=== PATIENT | male | born 1995 | race Caucasian/White ===

== ENCOUNTER 2022-08-16 16:18 | Inpatient (IN) | payer MEDICAID ==
[~2022-08-16] VITALS: Ht 172.7 cm; Wt 61.5 kg
[2022-08-16] MEDS ORDERED: normal saline 1000ML IV soln IVB ONE (16:30)
[2022-08-16] MEDS ORDERED: milrinone (Primacor) 20mg/D5W 100 ML IV PRN (16:50)
[2022-08-16 17:09] LABS: ABG BASE EXCESS -6.7 mmol/L (-2.0-2.0); ABG HCO3 22.5 mmol/L (22.0-26.0); ABG OXYGEN SATURATION 90.2 % (94-97); ABG PCO2 (T) 64.4 mmHg (35.0-48.0); ABG PO2 (T) 78.9 mmHg (75.0-100.0); ALLEN'S TEST POSITIVE; FCOHb 0.9 % (0.0-3.9); FMetHb 0.4 % (0.0-1.5); PATIENT TEMPERATURE 36.8; PEEP 5 cm H2O; RESPIRATORY RATE 16 b/min; TIDAL VOLUME 300 mL; TOTAL HEMOGLOBIN 10.9 G/dl (14.0-17.9)
[2022-08-16 17:14] LABS: APTT 27 SECONDS (22-32)
[2022-08-16] MEDS: milrinone (Primacor) 20mg/D5W 100 ML IV PRN (17:16)
[2022-08-16 17:19] LABS: BASOPHILS # (AUTO) 0.1 X10'3 (0-0.2); MEAN CORPUSCULAR HEMOGLOBIN 24.3 PG (27.0-31.0); MEAN PLATELET VOLUME 7.4 FL (7.4-10.4)
[2022-08-16 17:20] VITALS: BP 122/63
[2022-08-16 17:29] LABS: ALANINE AMINOTRANSFERASE 45 U/L (12-78); ALBUMIN 2.5 G/DL (3.4-5.0); ALBUMIN/GLOBULIN RATIO 0.4 (1.1-1.5); ALKALINE PHOSPHATASE 83 IU/L (46-116); ANION GAP 12 (8-16); ASPARTATE AMINO TRANSFERASE 46 U/L (10-37); BILIRUBIN,TOTAL 0.5 MG/DL (0.1-1.0); BLOOD UREA NITROGEN 17 MG/DL (7-18); BUN/CREATININE RATIO 53.1 (5.4-32.0); CALCIUM 9.2 MG/DL (8.5-10.1); CHLORIDE 102 MMOL/L (99-107); CREATININE 0.32 MG/DL (0.60-1.10); GLUCOSE 228 MG/DL (70-104); LIPASE < 50 U/L (73-393); POTASSIUM 4.9 MMOL/L (3.5-5.1); SODIUM 136 MMOL/L (135-145); TOTAL CARBON DIOXIDE 21.6 MMOL/L (24-32); TOTAL PROTEIN 8.5 G/DL (6.4-8.2); eGFR > 90 ML/MIN
[2022-08-16] MEDS ORDERED: diatrozoate meglu/diatrozoate sod (37% iodine) 120ML oral solution PO ONE (18:05)
[2022-08-16] MEDS ORDERED: diatr meglu/diatrizoate 30ml oral sol.-(3 dose) bottle PO ONE (18:05)
[2022-08-16] MEDS ORDERED: diatr meglu/diatrizoate 30ml oral sol.-(3 dose) bottle ONE (18:08)
[2022-08-16] MEDS ORDERED: sodium phosphate inj. 15 MMOL in dextrose 5%-water 250 ML IV PRN (18:15)
[2022-08-16] MEDS ORDERED: furosemide 10 MG/1 ML 10ml inj IV ONE (18:15)
[2022-08-16] MEDS ORDERED: furosemide inj 1,000 MG in normal saline 250ml IV soln 150 ML IV SCH (18:15)
[2022-08-16] MEDS ORDERED: sodium phosphate inj. 30 MMOL in dextrose 5%-water 250 ML IV PRN (18:15)
[2022-08-16] MEDS ORDERED: magnesium 2GM in 50ml NS 50 ML IV PRN (18:15)
[2022-08-16] MEDS ORDERED: potassium Cl 20 mEq SR tablet PO PRN ×2 (18:15)
[2022-08-16] MEDS ORDERED: Neutra Phos packet PO PRN (18:15)
[2022-08-16] MEDS ORDERED: midazolam 1 mg/ML 2ml injection IV ONE (18:15)
[2022-08-16] MEDS ORDERED: magnesium 4gm in 100ml NS 100 ML IV PRN (18:15)
[2022-08-16] MEDS ORDERED: magnesium Cl slow-release 64mg tablet PO PRN (18:15)
[2022-08-16 18:28] LABS: BASOPHILS % (AUTO) 0.4 % (0-1); EOSINOPHILS % (AUTO) 0.1 % (0-6); HEMATOCRIT 30.7 % (42.0-52.0); HEMOGLOBIN 9.2 g/dl (14.0-17.9); LYMPHOCYTES # (AUTO) 0.5 X10'3 (1.1-4.8); MEAN CORPUSCULAR VOLUME 80.8 FL (78-98); MONOCYTES # (AUTO) 1.1 X10'3 (0-0.9); MONOCYTES % (AUTO) 6.4 % (2-12); NEUTROPHILS % (AUTO) 90.1 % (42-75); PLATELET COUNT 660 X10'3 (140-440); RED CELL DISTRIBUTION WIDTH 19.4 % (11.5-14.5); WHITE BLOOD COUNT 17.8 X10'3 (4.5-11.0)
[2022-08-16 18:30] LABS: PLATELET ESTIMATE INCREASED
[2022-08-16 18:31] LABS: ANISOCYTOSIS 2+; HYPOCHROMASIA 1+; POIKILOCYTOSIS 1+; SPHEROCYTES 1+; TARGET CELLS 1+
[2022-08-16 18:32] LABS: STOMATOCYTES 1+
[2022-08-16] MEDS: K, MAG and/or Phos replacement - Verify level? MC SCH (18:50)
[2022-08-16] MEDS ORDERED: furosemide inj 100 MG in normal saline 100ml IV soln 90 ML IV SCH (19:00)
[2022-08-16 19:04] VITALS: BP 125/83
[2022-08-16 19:20] LABS: ALBUMIN 2.7 G/DL (3.4-5.0); ANION GAP 10 (8-16); BLOOD UREA NITROGEN 18 MG/DL (7-18); BUN/CREATININE RATIO 64.3 (5.4-32.0); CALCIUM 9.2 MG/DL (8.5-10.1); CHLORIDE 103 MMOL/L (99-107); CREATININE 0.28 MG/DL (0.60-1.10); GLUCOSE 181 MG/DL (70-104); MAGNESIUM 2.2 MG/DL (1.5-2.4); PHOSPHORUS 6.3 MG/DL (2.3-4.5); POTASSIUM 4.4 MMOL/L (3.5-5.1); SODIUM 137 MMOL/L (135-145); TOTAL CARBON DIOXIDE 23.7 MMOL/L (24-32); eGFR > 90 ML/MIN
[2022-08-16 20:44] VITALS: BP 115/79
[2022-08-16] MEDS ORDERED: morphine 4 MG/ML inj SYRINge IV PRN (20:55)
[2022-08-16] MEDS ORDERED: POTASSIUM BICARB 20meq eff tab 20 MEQ TABLET.EFF PO PRN ×2 (20:55)
[2022-08-16] MEDS ORDERED: acetaminophen 325mg tablet PO PRN ×2 (20:55)
[2022-08-16] MEDS ORDERED: magnesium hydroxide 30ml (MOM) UD suspension PO PRN (20:55)
[2022-08-16] MEDS ORDERED: LIDOcaine 2% 10ml TOPICAL JELLY (Urojet) TP ONE (20:55)
[2022-08-16] MEDS ORDERED: furosemide 10 MG/1 ML 10ml inj IV SCH (20:59)
[2022-08-16] MEDS: midazolam 1 mg/ML 2ml injection IV PRN ×2 (21:19→23:36)
[2022-08-16] MEDS ORDERED: FLUTICASONE (22:28)
[2022-08-16] MEDS ORDERED: ESCI5TAB17 PEG (22:28)
[2022-08-16] MEDS ORDERED: BUSP10TA11 PEG (22:28)
[2022-08-16] MEDS ORDERED: ENOX40SY7 SUBCUT (22:28)
[2022-08-16] MEDS ORDERED: AMIO200T61 PEG (22:28)
[2022-08-16] MEDS ORDERED: GABA-530 PEG (22:28)
[2022-08-16] MEDS ORDERED: QUELT PEG (22:28)
[2022-08-16] MEDS ORDERED: DIGO62.53 PEG (22:28)
[2022-08-16] MEDS ORDERED: FURO-149 PEG (22:28)
[2022-08-16] MEDS ORDERED: lidocaine 5% patch TOP (22:39)
[2022-08-16] MEDS ORDERED: MELA3TAB70 PEG (22:39)
[2022-08-16] MEDS ORDERED: [UNRECOGNIZED DRUG - MIXTURE] PEG (22:39)
[2022-08-16] MEDS ORDERED: INSU100I57 SQ (22:39)
[2022-08-16] MEDS ORDERED: IVAB5TAB PEG (22:39)
[2022-08-16] MEDS ORDERED: MICO85PO13 TOP (22:39)
[2022-08-16 22:51] VITALS: BP 115/70
--- NOTE | 2022-08-16 23:33 | NUR ---
Patient arrived on hospital bed w/RT and ER staff.
[2022-08-16 23:50] VITALS: BP 108/71
[2022-08-17] VITALS (33 sets, daily range): BP systolic 81–114; BP diastolic 38–77
[2022-08-17] MEDS: furosemide 40mg/4ml inj IV SCH ×3 (00:05→07:15)
[2022-08-17] MEDS: milrinone (Primacor) 20mg/D5W 100 ML IV PRN ×2 (00:07→18:29)
[2022-08-17] MEDS ORDERED: MICO57CR2 TOP (01:39)
[2022-08-17] MEDS ORDERED: LIDO700A32 TOP (01:39)
[2022-08-17] MEDS ORDERED: MULT9LIQ9 PEG (01:39)
[2022-08-17] MEDS ORDERED: FLUT16SP2 BOTHNARES (01:39)
[2022-08-17] MEDS ORDERED: DIGO-20 PO (01:39)
[2022-08-17] MEDS: midazolam 1 mg/ML 2ml injection IV PRN ×5 (01:50→13:13)
--- NOTE | 2022-08-17 02:24 | NUR ---
PICC not drawing, Lab notified
[2022-08-17] MEDS ORDERED: POLY17PO10 PEG (02:43)
[2022-08-17] MEDS ORDERED: ALBU18HF2 INH (03:35)
[2022-08-17] MEDS ORDERED: CARB15DR EACHEYE (03:35)
[2022-08-17] MEDS ORDERED: VALP250C3 PEG (03:35)
[2022-08-17] MEDS ORDERED: DICL20GE TOP (03:35)
[2022-08-17] MEDS ORDERED: DOCU1ENE3 RC (03:35)
[2022-08-17] MEDS ORDERED: SCOP1PAT11 TOP (03:35)
[2022-08-17] MEDS ORDERED: TRAZ-251 PEG (03:35)
[2022-08-17] MEDS ORDERED: PROM6.256 PEG (03:35)
[2022-08-17] MEDS ORDERED: CYCL5TAB PEG (03:35)
[2022-08-17] MEDS ORDERED: HYDR-3965 PEG (03:35)
[2022-08-17] MEDS ORDERED: ACET-890 PEG (03:35)
[2022-08-17] MEDS ORDERED: HYDR-3686 PEG (03:35)
[2022-08-17] MEDS ORDERED: SENN8.6T19 PEG (03:35)
[2022-08-17 03:40] LABS: ALANINE AMINOTRANSFERASE 193 U/L (12-78); ALBUMIN 2.3 G/DL (3.4-5.0); ALBUMIN/GLOBULIN RATIO 0.5 (1.1-1.5); ALKALINE PHOSPHATASE 71 IU/L (46-116); ANION GAP 12 (8-16); ASPARTATE AMINO TRANSFERASE 194 U/L (10-37); BILIRUBIN,TOTAL 0.4 MG/DL (0.1-1.0); BLOOD UREA NITROGEN 14 MG/DL (7-18); BUN/CREATININE RATIO 93.3 (5.4-32.0); CALCIUM 8.7 MG/DL (8.5-10.1); CHLORIDE 104 MMOL/L (99-107); CREATININE 0.15 MG/DL (0.60-1.10); GLUCOSE 61 MG/DL (70-104); MAGNESIUM 1.7 MG/DL (1.5-2.4); PHOSPHORUS 4.7 MG/DL (2.3-4.5); SODIUM 142 MMOL/L (135-145); TOTAL CARBON DIOXIDE 25.7 MMOL/L (24-32); TOTAL PROTEIN 7.4 G/DL (6.4-8.2); eGFR > 90 ML/MIN
[2022-08-17 03:43] LABS: POTASSIUM 2.4 MMOL/L (3.5-5.1)
[2022-08-17] MEDS: potassium Cl 20mEq/100mL bag 100 ML IV PRN ×5 (04:01→23:17)
--- NOTE | 2022-08-17 04:06 | NUR ---
Patient's Potassium is 2.4, I will replace per protocol and hold the 0400 Lasix.
[2022-08-17] MEDS: morphine 2 MG/ML inj. syringe IV PRN ×5 (04:32→23:20)
--- NOTE | 2022-08-17 06:32 | NUR ---
Problems reprioritized. Patient report given, questions answered & plan of care reviewed with FRANKIE Barry.
[2022-08-17] MEDS ORDERED: dextrose 50%-water 50ml dispensing syringe IV PRN ×2 (06:40)
[2022-08-17] MEDS ORDERED: glucagon, human recombinant 1mg kit SUBCUT PRN (06:40)
[2022-08-17] MEDS ORDERED: DEXTROSE 15 GM of carb/4 tabs (each vial/BOTTLE has 4 tablets) PO PRN ×2 (06:40)
[2022-08-17] MEDS ORDERED: insulin Lispro (HumaLOG) vial - multi-dose SQ SCH (06:40)
[2022-08-17] MEDS ORDERED: MESSAGE TO PHARMACY PO ONE (06:40)
[2022-08-17 06:59] LABS: ALBUMIN 2.3 G/DL (3.4-5.0); ANION GAP 12 (8-16); BLOOD UREA NITROGEN 15 MG/DL (7-18); BUN/CREATININE RATIO 93.8 (5.4-32.0); CALCIUM 8.8 MG/DL (8.5-10.1); CHLORIDE 104 MMOL/L (99-107); CREATININE 0.16 MG/DL (0.60-1.10); GLUCOSE 77 MG/DL (70-104); MAGNESIUM 1.8 MG/DL (1.5-2.4); PHOSPHORUS 5.1 MG/DL (2.3-4.5); POTASSIUM 3.5 MMOL/L (3.5-5.1); SODIUM 141 MMOL/L (135-145); TOTAL CARBON DIOXIDE 24.6 MMOL/L (24-32); eGFR > 90 ML/MIN
[2022-08-17 07:04] LABS: HEMOGLOBIN A1C 4.4 % (4.5-6.2)
--- NOTE | 2022-08-17 07:10 | NUR ---
Patient in room CICU 2010. I have received report from Julianna DAVID and had the opportunity to ask questions and assume patient care.
[2022-08-17] MEDS ORDERED: K and/or MAG REPLACEMENT MC SCH (08:00)
[2022-08-17] MEDS: K, MAG and/or Phos replacement - Verify level? MC SCH (08:00)
[2022-08-17 09:19] LABS: BASOPHILS % (AUTO) 0.2 % (0-1); EOSINOPHILS % (AUTO) 0.3 % (0-6); HEMATOCRIT 28.7 % (42.0-52.0); HEMOGLOBIN 8.6 g/dl (14.0-17.9); LYMPHOCYTES # (AUTO) 0.8 X10'3 (1.1-4.8); LYMPHOCYTES % (AUTO) 8.3 % (21-51); MEAN CORPUSCULAR HEMOGLOBIN 24.6 PG (27.0-31.0); MEAN CORPUSCULAR HGB CONC 30.1 g/dL (33.0-36.5); MEAN CORPUSCULAR VOLUME 81.8 FL (78-98); MEAN PLATELET VOLUME 7.3 FL (7.4-10.4); MONOCYTES # (AUTO) 1.2 X10'3 (0-0.9); MONOCYTES % (AUTO) 12.9 % (2-12); NEUTROPHILS # (AUTO) 7.5 X10'3 (1.8-7.7); NEUTROPHILS % (AUTO) 78.3 % (42-75); PLATELET COUNT 405 X10'3 (140-440); RED BLOOD COUNT 3.51 X10'6 (4.70-6.10); RED CELL DISTRIBUTION WIDTH 18.7 % (11.5-14.5); WHITE BLOOD COUNT 9.5 X10'3 (4.5-11.0)
[2022-08-17] MEDS ORDERED: acetaminophen 325mg/10.15ml oral unit dose solution PEG PRN ×2 (11:23→11:24)
[2022-08-17] MEDS ORDERED: Neutra Phos packet PEG PRN (11:24)
[2022-08-17] MEDS ORDERED: DEXTROSE 15 GM of carb/4 tabs (each vial/BOTTLE has 4 tablets) PEG PRN (11:24)
[2022-08-17] MEDS ORDERED: magnesium hydroxide 30ml (MOM) UD suspension PEG PRN (11:24)
[2022-08-17] MEDS ORDERED: furosemide 10 MG/1 ML 10ml inj IV ONE (11:25)
[2022-08-17] MEDS ORDERED: POTASSIUM BICARB 20meq eff tab 20 MEQ TABLET.EFF PEG PRN (11:25)
[2022-08-17] MEDS: furosemide inj 100 MG in normal saline 100ml IV soln 90 ML IV SCH ×2 (13:01→21:38)
[2022-08-17] MEDS: morphine 4 MG/ML inj SYRINge IV PRN (13:39)
[2022-08-17 13:59] LABS: ALBUMIN 2.5 G/DL (3.4-5.0); ANION GAP 10 (8-16); BLOOD UREA NITROGEN 14 MG/DL (7-18); BUN/CREATININE RATIO 87.5 (5.4-32.0); CALCIUM 9.3 MG/DL (8.5-10.1); CHLORIDE 104 MMOL/L (99-107); CREATININE 0.16 MG/DL (0.60-1.10); GLUCOSE 84 MG/DL (70-104); MAGNESIUM 1.8 MG/DL (1.5-2.4); PHOSPHORUS 4.4 MG/DL (2.3-4.5); POTASSIUM 4.7 MMOL/L (3.5-5.1); SODIUM 140 MMOL/L (135-145); TOTAL CARBON DIOXIDE 25.9 MMOL/L (24-32); eGFR > 90 ML/MIN
[2022-08-17] MEDS: POTASSIUM BICARB 20meq eff tab 20 MEQ TABLET.EFF PEG SCH ×2 (14:00→19:52)
[2022-08-17] MEDS: NORMAL SALINE IV SCH (14:00)
[2022-08-17] MEDS: DEXMEDETOMIDINE IV SCH (14:00)
--- NOTE | 2022-08-17 14:50 | NUR ---
TF consult: Pt trach and PEG dependent secondary to muscular dystrophy, admit for anasarca with bilat pleural effusions. Per EMR patient's TF was stopped three days [employer] at [facility]. Okay to start TF today though MD requests to run at a trickle rate of 30 mL/hr and will reassess tomorrow for possible advancement, see TF recs below. Noted pt with h/o T2DM with BG range 61-228 mg/dL since admit though A1c 4.4%, RN notified. LBM 08/16. Will continue to follow closely. Recommendations: 1) Continuous trickle TF at 30 mL/hr per MD using Vital HP to provide 720 mL volume/day, 864 kcal, 54 g protein, and 584 mL water 2) Once okay to advance TF, continuous Vital HP via PEG with 70 mL/hr goal rate to provide 1680 mL volume/day, 2016 kcal, 126 g protein, and 1362 mL water 3) Additional water flush per physician given CHF and diuresis; monitor serum Na 4) Prealbumin q Tuesday/ 5) Daily scaled weights Addendum: 08/17/22 at [address] Amended: Links added.
--- NOTE | 2022-08-17 14:54 | NUR ---
TF consult: Pt trach and PEG dependent secondary to muscular dystrophy, admit for anasarca with bilat pleural effusions. Per EMR patient's TF was stopped three days [employer] at [facility]. Okay to start TF today though MD requests to run at a trickle rate of 30 mL/hr and will reassess tomorrow for possible advancement, see TF recs below. Noted pt with h/o T2DM with BG range 61-228 mg/dL since admit though A1c 4.4%, RN notified. LBM 08/16. Will continue to follow closely. Recommendations: 1) Continuous trickle TF at 30 mL/hr per MD using Vital AF to provide 720 mL volume/day, 864 kcal, 54 g protein, and 584 mL water 2) Once okay to advance TF, continuous Vital AF via PEG with 70 mL/hr goal rate to provide 1680 mL volume/day, 2016 kcal, 126 g protein, and 1362 mL water 3) Additional water flush per physician given CHF and diuresis; monitor serum Na 4) Prealbumin q Tuesday/ 5) Daily scaled weights Addendum: 08/17/22 at [address] Amended: Links added.
--- NOTE | 2022-08-17 15:11 | NUR ---
DM consult: Patient's A1c has already been addressed, see previous RD assessment. Addendum: 08/17/22 at [address] Amended: Links added.
--- NOTE | 2022-08-17 18:25 | NUR ---
Patient in room CICU 2007. I have received report from Asha DAVID and had the opportunity to ask questions and assume patient care.
--- NOTE | 2022-08-17 18:32 | NUR ---
Problems reprioritized. Patient report given, questions answered & plan of care reviewed with Katya DAVID.
[2022-08-17] MEDS ORDERED: vancomycin/NS 1 GM ADD-VANTAGE 250 ML IV ONE (19:05)
[2022-08-17] MEDS: insulin glargine (Lantus) pen - multi-dose SQ SCH (19:57)
[2022-08-17] MEDS: DEXTROSE 15 GM of carb/4 tabs (each vial/BOTTLE has 4 tablets) PEG PRN (20:04)
[2022-08-17 20:28] LABS: ALBUMIN 2.2 G/DL (3.4-5.0); ANION GAP 12 (8-16); BLOOD UREA NITROGEN 12 MG/DL (7-18); CALCIUM 8.8 MG/DL (8.5-10.1); CHLORIDE 104 MMOL/L (99-107); GLUCOSE 67 MG/DL (70-104); PHOSPHORUS 3.5 MG/DL (2.3-4.5); SODIUM 142 MMOL/L (135-145); TOTAL CARBON DIOXIDE 26.5 MMOL/L (24-32)
[2022-08-17 20:35] LABS: eGFR > 90 ML/MIN
[2022-08-18] VITALS (35 sets, daily range): BP systolic 79–136; BP diastolic 32–85
[2022-08-18] MEDS: potassium Cl 20mEq/100mL bag 100 ML IV PRN ×4 (01:02→23:05)
[2022-08-18] MEDS: POTASSIUM BICARB 20meq eff tab 20 MEQ TABLET.EFF PEG SCH ×4 (01:55→19:29)
[2022-08-18] MEDS: DEXTROSE 15 GM of carb/4 tabs (each vial/BOTTLE has 4 tablets) PEG PRN (01:55)
[2022-08-18] MEDS: morphine 2 MG/ML inj. syringe IV PRN (01:56)
[2022-08-18 01:59] LABS: ABG BASE EXCESS 0.5 mmol/L (-2.0-2.0); ABG OXYGEN SATURATION 98.4 % (94-97); ABG PCO2 (T) 39.2 mmHg (35.0-48.0); ABG PO2 (T) 113.4 mmHg (75.0-100.0); ALLEN'S TEST POSITIVE; FMetHb 0.3 % (0.0-1.5); FO2Hb 97.1 % (94-97); PEEP 5 cm H2O; RESPIRATORY RATE 16 b/min; TIDAL VOLUME 350 mL
[2022-08-18 02:35] LABS: ALANINE AMINOTRANSFERASE 176 U/L (12-78); ALBUMIN 2.1 G/DL (3.4-5.0); ALBUMIN/GLOBULIN RATIO 0.4 (1.1-1.5); ALKALINE PHOSPHATASE 68 IU/L (46-116); ANION GAP 10 (8-16); ASPARTATE AMINO TRANSFERASE 128 U/L (10-37); BILIRUBIN,TOTAL 0.5 MG/DL (0.1-1.0); BLOOD UREA NITROGEN 12 MG/DL (7-18); CALCIUM 8.7 MG/DL (8.5-10.1); CHLORIDE 105 MMOL/L (99-107); GLUCOSE 70 MG/DL (70-104); MAGNESIUM 1.4 MG/DL (1.5-2.4); PHOSPHORUS 3.4 MG/DL (2.3-4.5); POTASSIUM 5.1 MMOL/L (3.5-5.1); SODIUM 142 MMOL/L (135-145); TOTAL CARBON DIOXIDE 26.6 MMOL/L (24-32); TOTAL PROTEIN 6.9 G/DL (6.4-8.2)
[2022-08-18 02:38] LABS: BUN/CREATININE RATIO 92.3 (5.4-32.0); CREATININE 0.13 MG/DL (0.60-1.10); eGFR > 90 ML/MIN
[2022-08-18] MEDS: vancomycin/NS 1 GM ADD-VANTAGE 250 ML IV SCH ×2 (03:19→11:23)
[2022-08-18] MEDS: morphine 4 MG/ML inj SYRINge IV PRN ×8 (03:51→21:43)
[2022-08-18] MEDS: milrinone (Primacor) 20mg/D5W 100 ML IV PRN ×3 (03:52→20:33)
[2022-08-18] MEDS: DEXMEDETOMIDINE IV SCH ×2 (03:53→23:04)
[2022-08-18] MEDS: NORMAL SALINE IV SCH ×2 (03:53→23:04)
--- NOTE | 2022-08-18 04:17 | NUR ---
Pt had 400ml of gastric contents during Residual check, gave 100ml back when pt told me to stop. Wasted 300ml per pt request. Continued TF at 30ml/hr.
--- NOTE | 2022-08-18 06:24 | NUR ---
Problems reprioritized. Patient report given, questions answered & plan of care reviewed with Jose DAVID.
[2022-08-18] MEDS: K, MAG and/or Phos replacement - Verify level? MC SCH (07:45)
[2022-08-18 08:59] LABS: BASOPHILS % (AUTO) 0.4 % (0-1); EOSINOPHILS # (AUTO) 0.2 X10'3 (0-0.9); EOSINOPHILS % (AUTO) 1.8 % (0-6); HEMATOCRIT 26.5 % (42.0-52.0); HEMOGLOBIN 8.2 g/dl (14.0-17.9); LYMPHOCYTES # (AUTO) 1.1 X10'3 (1.1-4.8); LYMPHOCYTES % (AUTO) 12.6 % (21-51); MEAN CORPUSCULAR HEMOGLOBIN 24.6 PG (27.0-31.0); MEAN CORPUSCULAR VOLUME 79.2 FL (78-98); MONOCYTES # (AUTO) 0.5 X10'3 (0-0.9); MONOCYTES % (AUTO) 6.2 % (2-12); PLATELET COUNT 391 X10'3 (140-440); RED BLOOD COUNT 3.34 X10'6 (4.70-6.10); WHITE BLOOD COUNT 8.8 X10'3 (4.5-11.0)
[2022-08-18 09:24] LABS: ANISOCYTOSIS 2+; PLATELET ESTIMATE NORMAL
[2022-08-18 09:25] LABS: HYPOCHROMASIA 2+; MICROCYTOSIS 1+
[2022-08-18 09:29] LABS: STOMATOCYTES 2+
[2022-08-18 09:47] LABS: ALBUMIN 2.3 G/DL (3.4-5.0); BLOOD UREA NITROGEN 13 MG/DL (7-18); BUN/CREATININE RATIO 76.5 (5.4-32.0); CREATININE 0.17 MG/DL (0.60-1.10); GLUCOSE 84 MG/DL (70-104); PHOSPHORUS 3.4 MG/DL (2.3-4.5); TOTAL CARBON DIOXIDE 25.4 MMOL/L (24-32); eGFR > 90 ML/MIN
[2022-08-18 10:22] LABS: ANION GAP 13 (8-16); CHLORIDE 104 MMOL/L (99-107); POTASSIUM 4.2 MMOL/L (3.5-5.1); SODIUM 142 MMOL/L (135-145)
[2022-08-18] MEDS: furosemide inj 100 MG in normal saline 100ml IV soln 90 ML IV SCH (11:07)
--- NOTE | 2022-08-18 11:10 | NUR ---
F/u: Pt with GRV range 35-400 mL since starting TF however down to 100 mL this morning. MD requests increasing TF rate to 50 mL/hr and reassessing tomorrow for possible further advancement, EMR updated. Notified MD of patient's blood sugars and A1c. Per pt's dad pt "doesn't really have T2DM", though insulin listed on patient's home med list per clinical pharmacist. Glycemic protocol remains active at this time but pt not receiving insulin d/t current BG trends. Will continue to follow closely. Recommendations: 1) Continuous trickle TF at 50 mL/hr per MD using Vital AF to provide 1200 mL volume/day, 1440 kcal, 90 g protein, and 973 mL water 2) Once okay to advance TF, continuous Vital AF via PEG with 70 mL/hr goal rate to provide 1680 mL volume/day, 2016 kcal, 126 g protein, and 1362 mL water 3) Additional water flush per physician given CHF and diuresis; monitor serum Na 4) Prealbumin q Tuesday/ 5) Daily scaled weights Addendum: 08/18/22 at [address] Amended: Links added.
[2022-08-18] MEDS: metolazone 2.5mg tablet PEG SCH ×2 (13:01→19:28)
[2022-08-18] MEDS: piperacillin/tazobactam inj. 3.375 GM in NS 50ml IV SCH ×2 (13:01→19:28)
[2022-08-18 13:58] LABS: ALBUMIN 2.2 G/DL (3.4-5.0); ANION GAP 12 (8-16); BLOOD UREA NITROGEN 11 MG/DL (7-18); BUN/CREATININE RATIO 57.9 (5.4-32.0); CALCIUM 8.9 MG/DL (8.5-10.1); CHLORIDE 103 MMOL/L (99-107); CREATININE 0.19 MG/DL (0.60-1.10); GLUCOSE 110 MG/DL (70-104); PHOSPHORUS 3.1 MG/DL (2.3-4.5); POTASSIUM 3.2 MMOL/L (3.5-5.1); SODIUM 143 MMOL/L (135-145); TOTAL CARBON DIOXIDE 28.2 MMOL/L (24-32); eGFR > 90 ML/MIN
--- NOTE | 2022-08-18 18:19 | NUR ---
Patient in room CICU 2007. I have received report from FRANKIE Garcia and had the opportunity to ask questions and assume patient care.
[2022-08-18] MEDS ORDERED: VANCOMYCIN LEVEL IV ONE (18:30)
--- NOTE | 2022-08-18 20:03 | NUR ---
350cc's gastric contents removed during residual check. Pt requested I stop removing gastric contents at 350cc's. 300cc's returned per protocol.
[2022-08-18 20:53] LABS: ALBUMIN 2.4 G/DL (3.4-5.0); BLOOD UREA NITROGEN 10 MG/DL (7-18); BUN/CREATININE RATIO 43.5 (5.4-32.0); CALCIUM 9.3 MG/DL (8.5-10.1); CREATININE 0.23 MG/DL (0.60-1.10); GLUCOSE 134 MG/DL (70-104); TOTAL CARBON DIOXIDE 33.8 MMOL/L (24-32); eGFR > 90 ML/MIN
[2022-08-18] MEDS: insulin glargine (Lantus) pen - multi-dose SQ SCH (21:00)
[2022-08-18 21:06] LABS: ANION GAP 8 (8-16); CHLORIDE 100 MMOL/L (99-107); POTASSIUM 3.1 MMOL/L (3.5-5.1); SODIUM 142 MMOL/L (135-145)
[2022-08-19] VITALS (34 sets, daily range): BP systolic 85–115; BP diastolic 36–68
[2022-08-19] MEDS: furosemide inj 100 MG in normal saline 100ml IV soln 90 ML IV SCH ×4 (00:50→20:28)
[2022-08-19] MEDS: morphine 4 MG/ML inj SYRINge IV PRN ×8 (00:51→21:40)
[2022-08-19 01:36] LABS: BASOPHILS % (AUTO) 0.4 % (0-1); EOSINOPHILS # (AUTO) 0.3 X10'3 (0-0.9); EOSINOPHILS % (AUTO) 3.3 % (0-6); HEMATOCRIT 27.3 % (42.0-52.0); HEMOGLOBIN 8.5 g/dl (14.0-17.9); LYMPHOCYTES # (AUTO) 1.2 X10'3 (1.1-4.8); LYMPHOCYTES % (AUTO) 12.9 % (21-51); MEAN CORPUSCULAR HEMOGLOBIN 24.2 PG (27.0-31.0); MEAN CORPUSCULAR HGB CONC 31.2 g/dL (33.0-36.5); MEAN CORPUSCULAR VOLUME 77.7 FL (78-98); MEAN PLATELET VOLUME 6.8 FL (7.4-10.4); MONOCYTES # (AUTO) 0.8 X10'3 (0-0.9); MONOCYTES % (AUTO) 8.4 % (2-12); PLATELET COUNT 431 X10'3 (140-440); RED BLOOD COUNT 3.52 X10'6 (4.70-6.10); WHITE BLOOD COUNT 9.3 X10'3 (4.5-11.0)
[2022-08-19] MEDS: POTASSIUM BICARB 20meq eff tab 20 MEQ TABLET.EFF PEG SCH ×4 (01:42→20:27)
[2022-08-19 01:51] LABS: ALANINE AMINOTRANSFERASE 164 U/L (12-78); ALBUMIN 2.4 G/DL (3.4-5.0); ALBUMIN/GLOBULIN RATIO 0.5 (1.1-1.5); ALKALINE PHOSPHATASE 84 IU/L (46-116); ANION GAP 8 (8-16); ASPARTATE AMINO TRANSFERASE 82 U/L (10-37); BILIRUBIN,TOTAL 0.6 MG/DL (0.1-1.0); BLOOD UREA NITROGEN 10 MG/DL (7-18); CALCIUM 9.4 MG/DL (8.5-10.1); CHLORIDE 99 MMOL/L (99-107); CREATININE 0.27 MG/DL (0.60-1.10); GLUCOSE 107 MG/DL (70-104); MAGNESIUM 1.8 MG/DL (1.5-2.4); PHOSPHORUS 3.2 MG/DL (2.3-4.5); PREALBUMIN 15.3 MG/DL (19-36); SODIUM 141 MMOL/L (135-145); TOTAL CARBON DIOXIDE 34.2 MMOL/L (24-32); TOTAL PROTEIN 7.7 G/DL (6.4-8.2); eGFR > 90 ML/MIN
[2022-08-19] MEDS: piperacillin/tazobactam inj. 3.375 GM in NS 50ml IV SCH ×3 (03:41→20:26)
[2022-08-19] MEDS: milrinone (Primacor) 20mg/D5W 100 ML IV PRN ×2 (04:50→21:40)
--- NOTE | 2022-08-19 06:14 | NUR ---
Problems reprioritized. Patient report given, questions answered & plan of care reviewed with FRANKIE Garcia.
[2022-08-19] MEDS: metolazone 2.5mg tablet PEG SCH ×2 (07:03→20:27)
[2022-08-19 07:56] LABS: ALBUMIN 2.5 G/DL (3.4-5.0); ANION GAP 11 (8-16); BLOOD UREA NITROGEN 10 MG/DL (7-18); BUN/CREATININE RATIO 43.5 (5.4-32.0); CALCIUM 9.5 MG/DL (8.5-10.1); CHLORIDE 96 MMOL/L (99-107); CREATININE 0.23 MG/DL (0.60-1.10); GLUCOSE 121 MG/DL (70-104); PHOSPHORUS 3.3 MG/DL (2.3-4.5); SODIUM 143 MMOL/L (135-145); TOTAL CARBON DIOXIDE 36.4 MMOL/L (24-32); VANCOMYCIN,RANDOM 22.6 UG/ML; eGFR > 90 ML/MIN
[2022-08-19] MEDS ORDERED: VANCOMYCIN LEVEL IV ONE (08:00)
[2022-08-19 08:10] LABS: POTASSIUM 2.7 MMOL/L (3.5-5.1)
[2022-08-19] MEDS: POTASSIUM BICARB 20meq eff tab 20 MEQ TABLET.EFF PEG PRN (08:15)
[2022-08-19] MEDS: DEXMEDETOMIDINE IV SCH (09:59)
[2022-08-19] MEDS: NORMAL SALINE IV SCH (09:59)
[2022-08-19] MEDS: ipratropium/albuterol 3ml nebule NEB SCH ×3 (10:59→19:36)
[2022-08-19 13:31] LABS: ALBUMIN 2.5 G/DL (3.4-5.0); BLOOD UREA NITROGEN 10 MG/DL (7-18); BUN/CREATININE RATIO 34.5 (5.4-32.0); CREATININE 0.29 MG/DL (0.60-1.10); GLUCOSE 113 MG/DL (70-104); TOTAL CARBON DIOXIDE 39.4 MMOL/L (24-32); eGFR > 90 ML/MIN
[2022-08-19 13:52] LABS: ANION GAP 8 (8-16); CHLORIDE 95 MMOL/L (99-107); POTASSIUM 3.1 MMOL/L (3.5-5.1); SODIUM 142 MMOL/L (135-145)
[2022-08-19] MEDS: potassium Cl 20mEq/100mL bag 100 ML IV PRN (14:18)
[2022-08-19] MEDS ORDERED: erythromycin ethylsuccinate 200mg/5ml 200ml bottle PEG SCH (16:00)
[2022-08-19] MEDS: busPIRone 5mg tablet PO SCH ×2 (16:22→20:00)
[2022-08-19] MEDS: ESCITALOPRAM OXALATE 5 MG TABLET PO SCH (16:22)
--- NOTE | 2022-08-19 18:21 | NUR ---
Patient in room CICU 2007. I have received report from Jose DAVID and had the opportunity to ask questions and assume patient care.
[2022-08-19] MEDS: VANCOMYCIN 750MG IV in NS 250 ML IV SCH (18:42)
[2022-08-19 20:08] LABS: ALBUMIN 2.5 G/DL (3.4-5.0); ANION GAP 7 (8-16); BLOOD UREA NITROGEN 13 MG/DL (7-18); BUN/CREATININE RATIO 43.3 (5.4-32.0); CHLORIDE 93 MMOL/L (99-107); GLUCOSE 117 MG/DL (70-104); PHOSPHORUS 3.2 MG/DL (2.3-4.5); POTASSIUM 4.4 MMOL/L (3.5-5.1); SODIUM 142 MMOL/L (135-145); eGFR > 90 ML/MIN
[2022-08-19 20:15] LABS: TOTAL CARBON DIOXIDE 41.7 MMOL/L (24-32)
[2022-08-19] MEDS: docusate sodium 100mg/10ml UD cup PO SCH (20:26)
[2022-08-19] MEDS ORDERED: polyethylene glycol 3350 17gm powd pack PO SCH (21:00)
[2022-08-19] MEDS: insulin glargine (Lantus) pen - multi-dose SQ SCH (21:00)
[2022-08-20] VITALS (36 sets, daily range): BP systolic 89–129; BP diastolic 42–71
[2022-08-20] MEDS: erythromycin ethylsuccinate 200mg/5ml 200ml bottle PEG SCH ×3 (00:19→16:00)
[2022-08-20] MEDS: morphine 4 MG/ML inj SYRINge IV PRN ×6 (00:20→21:51)
[2022-08-20] MEDS: NORMAL SALINE IV SCH ×3 (00:42→17:35)
[2022-08-20] MEDS: DEXMEDETOMIDINE IV SCH ×3 (00:42→17:35)
[2022-08-20] MEDS: VANCOMYCIN 750MG IV in NS 250 ML IV SCH ×2 (02:00→10:00)
[2022-08-20] MEDS: POTASSIUM BICARB 20meq eff tab 20 MEQ TABLET.EFF PEG SCH ×4 (03:50→23:38)
[2022-08-20 04:37] LABS: HEMOGLOBIN 8.6 g/dl (14.0-17.9); MEAN CORPUSCULAR HEMOGLOBIN 23.7 PG (27.0-31.0); MEAN PLATELET VOLUME 7.3 FL (7.4-10.4); WHITE BLOOD COUNT 7.7 X10'3 (4.5-11.0)
[2022-08-20 04:40] LABS: BASOPHILS % (AUTO) 0.5 % (0-1); EOSINOPHILS # (AUTO) 0.3 X10'3 (0-0.9); HEMATOCRIT 28.4 % (42.0-52.0); LYMPHOCYTES # (AUTO) 1.7 X10'3 (1.1-4.8); LYMPHOCYTES % (AUTO) 21.9 % (21-51); MEAN CORPUSCULAR HGB CONC 30.4 g/dL (33.0-36.5); MEAN CORPUSCULAR VOLUME 78.1 FL (78-98); MONOCYTES # (AUTO) 0.9 X10'3 (0-0.9); MONOCYTES % (AUTO) 12.3 % (2-12); NEUTROPHILS # (AUTO) 4.7 X10'3 (1.8-7.7); NEUTROPHILS % (AUTO) 61.3 % (42-75); PLATELET COUNT 431 X10'3 (140-440); RED BLOOD COUNT 3.64 X10'6 (4.70-6.10); RED CELL DISTRIBUTION WIDTH 19.3 % (11.5-14.5)
[2022-08-20] MEDS: piperacillin/tazobactam inj. 3.375 GM in NS 50ml IV SCH (04:50)
[2022-08-20 05:01] LABS: ALANINE AMINOTRANSFERASE 128 U/L (12-78); ALBUMIN 2.4 G/DL (3.4-5.0); ALBUMIN/GLOBULIN RATIO 0.4 (1.1-1.5); ALKALINE PHOSPHATASE 89 IU/L (46-116); ANION GAP 7 (8-16); ASPARTATE AMINO TRANSFERASE 53 U/L (10-37); BLOOD UREA NITROGEN 15 MG/DL (7-18); BUN/CREATININE RATIO 46.9 (5.4-32.0); CALCIUM 10.1 MG/DL (8.5-10.1); CHLORIDE 93 MMOL/L (99-107); CREATININE 0.32 MG/DL (0.60-1.10); GLUCOSE 133 MG/DL (70-104); POTASSIUM 3.3 MMOL/L (3.5-5.1); SODIUM 142 MMOL/L (135-145); eGFR > 90 ML/MIN
[2022-08-20 05:03] LABS: TOTAL CARBON DIOXIDE 42.2 MMOL/L (24-32)
[2022-08-20] MEDS: potassium Cl 20mEq/100mL bag 100 ML IV PRN ×5 (05:13→22:00)
[2022-08-20 06:12] LABS: PLATELET ESTIMATE NORMAL
[2022-08-20 06:13] LABS: ANISOCYTOSIS 2+; HYPOCHROMASIA 1+; MICROCYTOSIS 1+; POLYCHROMASIA 1+; STOMATOCYTES 2+
--- NOTE | 2022-08-20 06:24 | NUR ---
Problems reprioritized. Patient report given, questions answered & plan of care reviewed with Alicia DAVID.
--- NOTE | 2022-08-20 06:30 | NUR ---
Patient in room CICU 2008. I have received report from randi and had the opportunity to ask questions and assume patient care.
[2022-08-20] MEDS: ipratropium/albuterol 3ml nebule NEB SCH ×4 (07:28→20:12)
[2022-08-20] MEDS: ESCITALOPRAM OXALATE 5 MG TABLET PO SCH (08:03)
[2022-08-20] MEDS: docusate sodium 100mg/10ml UD cup PO SCH (08:03)
[2022-08-20] MEDS: busPIRone 5mg tablet PO SCH (08:03)
[2022-08-20] MEDS: milrinone (Primacor) 20mg/D5W 100 ML IV PRN ×3 (08:07→23:38)
--- NOTE | 2022-08-20 09:30 | NUR ---
pt awake and alert, frequently speaking - some difficulty understanding as has trach. repositioned, oral care, oral and trach suctioning pt frequently asks for. dad at bs 24/01. ms q4h q2h
[2022-08-20] MEDS ORDERED: insulin regular, human U-100 3ml vial - multi-dose SQ SCH (09:48)
[2022-08-20 10:08] LABS: ALBUMIN 2.5 G/DL (3.4-5.0); ANION GAP 7 (8-16); BLOOD UREA NITROGEN 17 MG/DL (7-18); BUN/CREATININE RATIO 51.5 (5.4-32.0); CALCIUM 10.2 MG/DL (8.5-10.1); CHLORIDE 91 MMOL/L (99-107); CREATININE 0.33 MG/DL (0.60-1.10); GLUCOSE 135 MG/DL (70-104); POTASSIUM 4.2 MMOL/L (3.5-5.1); SODIUM 140 MMOL/L (135-145); eGFR > 90 ML/MIN
[2022-08-20 10:15] LABS: TOTAL CARBON DIOXIDE 42.4 MMOL/L (24-32)
--- NOTE | 2022-08-20 10:30 | NUR ---
update to dr yeboah. abgs done- expected results. vital af increased to 50cc/hr., pain med changed to dilaudid. meds dcd and new abx ordered. [facility] bed not available- dad and pt aware. pt uncomfortable in bed, spoke with wound care x 3- dad/mom can bring in pts overlay- okayed by wound care. mom to bring in in am. pt wishes to do thay rather than ordering a new bed.
--- NOTE | 2022-08-20 11:18 | NUR ---
Reassessment: Pt remains intubated. GRV continued to increase, up to 650 mL when TF increased to 50 mL/hr. TF was decreased to 30 mL/hr 08/19 and pt started on routine Colace, Miralax, and Erythromycin. GRV much improved this morning with range 5-30 mL since 00:00 per EMR. okayed advancing TF to RD recommended goal rate of 70 mL/hr, RN notified and EMR updated. LBM 08/17. Will continue to follow. Recommendations: 1) Continuous Vital AF via PEG with 70 mL/hr goal rate to provide 1680 mL volume/day, 2016 kcal, 126 g protein, and 1362 mL water 2) Additional water flush per physician given CHF and diuresis; monitor serum Na 3) Prealbumin q Tuesday/ 4) Daily scaled weights Addendum: 08/20/22 at [address] Amended: Links added.
[2022-08-20] MEDS ORDERED: magnesium 2GM in 50ml NS 50 ML IV PRN (11:45)
[2022-08-20] MEDS ORDERED: magnesium 4gm in 100ml NS 100 ML IV PRN (11:45)
[2022-08-20] MEDS ORDERED: HYDROmorphone 1 mg/ml syringe IV PRN ×2 (11:50)
[2022-08-20] MEDS ORDERED: CefTRIAXone/D5W-Rocephin 1gm 50 ML IV ONE (11:55)
[2022-08-20] MEDS ORDERED: levoFLOXACIN-Levaquin 750MG/D5 150 ML IV STA (11:55)
[2022-08-20] MEDS: furosemide inj 100 MG in normal saline 100ml IV soln 90 ML IV SCH (12:13)
--- NOTE | 2022-08-20 14:00 | NUR ---
pt c/o 'weird feeling after dilaudid, want ms back. C/o heart pain- difficult to [place] where. says it difficult to breathe, sats wnl. cardiac rhythm with occ bigeminy off and on. call to md- ekg done. ms 2mg given. dr yeboah shown ekg.
[2022-08-20] MEDS: morphine 2 MG/ML inj. syringe IV PRN ×2 (14:23→14:46)
--- NOTE | 2022-08-20 15:00 | NUR ---
2mg more of ms given- pt more comfortable- sleeping. dad always in room except for lunch- but rests in chair often
[2022-08-20] MEDS: metolazone 2.5mg tablet PEG SCH ×2 (15:09→21:50)
--- NOTE | 2022-08-20 16:25 | NUR ---
mg 4gms given as per orders from dr yeboah- mg of 1.8
[2022-08-20 17:06] LABS: ALBUMIN 2.6 G/DL (3.4-5.0); ANION GAP 10 (8-16); BLOOD UREA NITROGEN 18 MG/DL (7-18); BUN/CREATININE RATIO 48.6 (5.4-32.0); CALCIUM 10.3 MG/DL (8.5-10.1); CHLORIDE 88 MMOL/L (99-107); CREATININE 0.37 MG/DL (0.60-1.10); GLUCOSE 124 MG/DL (70-104); SODIUM 140 MMOL/L (135-145); eGFR > 90 ML/MIN
[2022-08-20 17:09] LABS: POTASSIUM 2.8 MMOL/L (3.5-5.1); TOTAL CARBON DIOXIDE 41.7 MMOL/L (24-32)
[2022-08-20] MEDS ORDERED: mag hydrox/Alum hydrox/simeth 30ml oral suspension PO PRN (17:20)
[2022-08-20] MEDS ORDERED: VANCOMYCIN LEVEL IV ONE (17:30)
--- NOTE | 2022-08-20 17:44 | NUR ---
spoke with md coughlin continued spoke with md coughlin continued heart pain- maalox ordered and given. k 2.8- replacing 'heart pain '
--- NOTE | 2022-08-20 18:30 | NUR ---
Patient in room CICU 2008. I have received report from Alicia DAVID and had the opportunity to ask questions and assume patient care.
[2022-08-20 20:09] LABS: MAGNESIUM 1.7 MG/DL (1.5-2.4)
[2022-08-20] MEDS: insulin glargine (Lantus) pen - multi-dose SQ SCH (21:00)
[2022-08-20] MEDS: busPIRone 5mg tablet PEG SCH (21:50)
[2022-08-20] MEDS: docusate sodium 100mg/10ml UD cup PEG SCH (21:50)
[2022-08-20] MEDS: gabapentin 100mg capsule PEG SCH (21:50)
[2022-08-20] MEDS: polyethylene glycol 3350 17gm powd pack PEG SCH (23:39)
[2022-08-21] VITALS (35 sets, daily range): BP systolic 79–106; BP diastolic 31–63
[2022-08-21] MEDS: POTASSIUM BICARB 20meq eff tab 20 MEQ TABLET.EFF PEG SCH ×4 (02:48→20:27)
[2022-08-21] MEDS: erythromycin ethylsuccinate 200mg/5ml 200ml bottle PEG SCH ×3 (02:48→15:24)
[2022-08-21] MEDS: furosemide inj 100 MG in normal saline 100ml IV soln 90 ML IV SCH (03:48)
[2022-08-21] MEDS: morphine 4 MG/ML inj SYRINge IV PRN ×6 (05:09→19:06)
--- NOTE | 2022-08-21 06:26 | NUR ---
Problems reprioritized. Patient report given, questions answered & plan of care reviewed with Jose DAVID.
[2022-08-21 06:40] LABS: BASOPHILS % (AUTO) 0.4 % (0-1); EOSINOPHILS # (AUTO) 0.1 X10'3 (0-0.9); EOSINOPHILS % (AUTO) 1.6 % (0-6); HEMATOCRIT 31.8 % (42.0-52.0); HEMOGLOBIN 9.9 g/dl (14.0-17.9); LYMPHOCYTES # (AUTO) 1.3 X10'3 (1.1-4.8); LYMPHOCYTES % (AUTO) 16.1 % (21-51); MEAN CORPUSCULAR HEMOGLOBIN 23.9 PG (27.0-31.0); MEAN CORPUSCULAR HGB CONC 31.1 g/dL (33.0-36.5); MEAN CORPUSCULAR VOLUME 76.7 FL (78-98); MEAN PLATELET VOLUME 7.4 FL (7.4-10.4); MONOCYTES # (AUTO) 0.9 X10'3 (0-0.9); MONOCYTES % (AUTO) 11.4 % (2-12); NEUTROPHILS # (AUTO) 5.9 X10'3 (1.8-7.7); NEUTROPHILS % (AUTO) 70.5 % (42-75); PLATELET COUNT 470 X10'3 (140-440); RED BLOOD COUNT 4.15 X10'6 (4.70-6.10); RED CELL DISTRIBUTION WIDTH 19.2 % (11.5-14.5); WHITE BLOOD COUNT 8.3 X10'3 (4.5-11.0)
[2022-08-21 06:50] LABS: MAGNESIUM 3.3 MG/DL (1.5-2.4)
[2022-08-21 07:03] LABS: ANISOCYTOSIS 2+; MICROCYTOSIS 1+; PLATELET ESTIMATE INCREASED
[2022-08-21 07:04] LABS: POLYCHROMASIA 1+; STOMATOCYTES 4+
[2022-08-21 07:44] LABS: ALANINE AMINOTRANSFERASE 105 U/L (12-78); ALBUMIN 2.9 G/DL (3.4-5.0); ALBUMIN/GLOBULIN RATIO 0.4 (1.1-1.5); ALKALINE PHOSPHATASE 105 IU/L (46-116); ANION GAP 7 (8-16); ASPARTATE AMINO TRANSFERASE 47 U/L (10-37); BILIRUBIN,TOTAL 1.1 MG/DL (0.1-1.0); BLOOD UREA NITROGEN 19 MG/DL (7-18); BUN/CREATININE RATIO 57.6 (5.4-32.0); CALCIUM 10.8 MG/DL (8.5-10.1); CHLORIDE 89 MMOL/L (99-107); CREATININE 0.33 MG/DL (0.60-1.10); GLUCOSE 114 MG/DL (70-104); POTASSIUM 3.8 MMOL/L (3.5-5.1); SODIUM 138 MMOL/L (135-145); TOTAL PROTEIN 9.5 G/DL (6.4-8.2); eGFR > 90 ML/MIN
[2022-08-21 07:46] LABS: TOTAL CARBON DIOXIDE 42.1 MMOL/L (24-32)
[2022-08-21] MEDS: docusate sodium 100mg/10ml UD cup PEG SCH ×2 (08:00→20:00)
[2022-08-21] MEDS: ipratropium/albuterol 3ml nebule NEB SCH ×5 (08:17→23:00)
[2022-08-21] MEDS: levoFLOXACIN-Levaquin 750MG/D5 150 ML IV SCH (08:36)
[2022-08-21] MEDS: metolazone 2.5mg tablet PEG SCH ×2 (08:36→20:00)
[2022-08-21] MEDS: CefTRIAXone/D5W-Rocephin 1gm 50 ML IV SCH (08:36)
[2022-08-21] MEDS: ESCITALOPRAM OXALATE 5 MG TABLET PEG SCH (08:37)
[2022-08-21] MEDS: busPIRone 5mg tablet PEG SCH ×2 (08:37→20:27)
[2022-08-21] MEDS: DEXMEDETOMIDINE IV SCH ×2 (08:44→13:20)
[2022-08-21] MEDS: NORMAL SALINE IV SCH ×2 (08:44→13:20)
[2022-08-21 10:57] LABS: ALBUMIN 2.6 G/DL (3.4-5.0); ANION GAP 6 (8-16); BLOOD UREA NITROGEN 23 MG/DL (7-18); BUN/CREATININE RATIO 52.3 (5.4-32.0); CALCIUM 10.4 MG/DL (8.5-10.1); CHLORIDE 87 MMOL/L (99-107); CREATININE 0.44 MG/DL (0.60-1.10); GLUCOSE 169 MG/DL (70-104); POTASSIUM 3.4 MMOL/L (3.5-5.1); SODIUM 137 MMOL/L (135-145); eGFR > 90 ML/MIN
[2022-08-21 11:00] LABS: TOTAL CARBON DIOXIDE 44.2 MMOL/L (24-32)
[2022-08-21] MEDS: furosemide 40mg/4ml inj IV SCH ×2 (12:50→20:00)
[2022-08-21] MEDS: milrinone (Primacor) 20mg/D5W 100 ML IV PRN (15:08)
[2022-08-21 16:02] LABS: ALBUMIN 2.4 G/DL (3.4-5.0); ANION GAP 2 (8-16); BLOOD UREA NITROGEN 25 MG/DL (7-18); BUN/CREATININE RATIO 67.6 (5.4-32.0); CALCIUM 9.2 MG/DL (8.5-10.1); CHLORIDE 93 MMOL/L (99-107); CREATININE 0.37 MG/DL (0.60-1.10); GLUCOSE 117 MG/DL (70-104); POTASSIUM 3.2 MMOL/L (3.5-5.1); SODIUM 139 MMOL/L (135-145); eGFR > 90 ML/MIN
[2022-08-21 16:03] LABS: TOTAL CARBON DIOXIDE 43.8 MMOL/L (24-32)
[2022-08-21] MEDS: normal saline 1000ml 1,000 ML IV SCH (17:45)
[2022-08-21] MEDS: acetaZOLAMIDE IV 500mg inj IV SCH (20:00)
[2022-08-21] MEDS: gabapentin 100mg capsule PEG SCH (20:27)
[2022-08-21] MEDS: insulin glargine (Lantus) pen - multi-dose SQ SCH (21:00)
[2022-08-21] MEDS: polyethylene glycol 3350 17gm powd pack PEG SCH (21:00)
[2022-08-21] MEDS: morphine 2 MG/ML inj. syringe IV PRN (21:58)
[2022-08-22] VITALS (33 sets, daily range): BP systolic 79–115; BP diastolic 32–79
[2022-08-22] MEDS: erythromycin ethylsuccinate 200mg/5ml 200ml bottle PEG SCH ×3 (00:25→16:28)
[2022-08-22] MEDS: morphine 2 MG/ML inj. syringe IV PRN ×9 (00:36→23:39)
[2022-08-22] MEDS: POTASSIUM BICARB 20meq eff tab 20 MEQ TABLET.EFF PEG SCH ×4 (02:13→21:15)
[2022-08-22] MEDS: DEXMEDETOMIDINE IV SCH ×2 (02:14→16:29)
[2022-08-22] MEDS: NORMAL SALINE IV SCH ×2 (02:14→16:29)
[2022-08-22 07:01] LABS: ALBUMIN 2.4 G/DL (3.4-5.0); ANION GAP 4 (8-16); BASOPHILS % (AUTO) 0.2 % (0-1); BLOOD UREA NITROGEN 26 MG/DL (7-18); BUN/CREATININE RATIO 83.9 (5.4-32.0); CALCIUM 9.1 MG/DL (8.5-10.1); CHLORIDE 97 MMOL/L (99-107); CREATININE 0.31 MG/DL (0.60-1.10); EOSINOPHILS # (AUTO) 0.2 X10'3 (0-0.9); EOSINOPHILS % (AUTO) 2.6 % (0-6); GLUCOSE 133 MG/DL (70-104); HEMOGLOBIN 8.1 g/dl (14.0-17.9); LYMPHOCYTES # (AUTO) 1.2 X10'3 (1.1-4.8); LYMPHOCYTES % (AUTO) 17.4 % (21-51); MAGNESIUM 2.4 MG/DL (1.5-2.4); MEAN CORPUSCULAR HEMOGLOBIN 24.1 PG (27.0-31.0); MEAN CORPUSCULAR HGB CONC 31.3 g/dL (33.0-36.5); MEAN CORPUSCULAR VOLUME 77.2 FL (78-98); MEAN PLATELET VOLUME 7.4 FL (7.4-10.4); MONOCYTES # (AUTO) 0.6 X10'3 (0-0.9); MONOCYTES % (AUTO) 8.3 % (2-12); NEUTROPHILS # (AUTO) 5.1 X10'3 (1.8-7.7); NEUTROPHILS % (AUTO) 71.5 % (42-75); PLATELET COUNT 348 X10'3 (140-440); POTASSIUM 3.6 MMOL/L (3.5-5.1); RED BLOOD COUNT 3.36 X10'6 (4.70-6.10); RED CELL DISTRIBUTION WIDTH 19.4 % (11.5-14.5); SODIUM 139 MMOL/L (135-145); TOTAL CARBON DIOXIDE 38.4 MMOL/L (24-32); WHITE BLOOD COUNT 7.1 X10'3 (4.5-11.0); eGFR > 90 ML/MIN
[2022-08-22] MEDS: ipratropium/albuterol 3ml nebule NEB SCH ×5 (07:06→23:00)
[2022-08-22] MEDS: milrinone (Primacor) 20mg/D5W 100 ML IV PRN ×2 (07:12→14:35)
[2022-08-22 07:30] LABS: ANISOCYTOSIS 2+; HYPOCHROMASIA 1+; MICROCYTOSIS 1+; PLATELET ESTIMATE NORMAL; POLYCHROMASIA 1+; STOMATOCYTES 3+
[2022-08-22] MEDS: busPIRone 5mg tablet PEG SCH ×2 (07:53→21:15)
[2022-08-22] MEDS: ESCITALOPRAM OXALATE 5 MG TABLET PEG SCH (07:53)
[2022-08-22] MEDS: docusate sodium 100mg/10ml UD cup PEG SCH ×2 (07:53→20:00)
[2022-08-22] MEDS: levoFLOXACIN-Levaquin 750MG/D5 150 ML IV SCH (07:59)
[2022-08-22] MEDS: furosemide 40mg/4ml inj IV SCH (08:00)
[2022-08-22] MEDS: metolazone 2.5mg tablet PEG SCH (08:00)
[2022-08-22] MEDS: acetaZOLAMIDE IV 500mg inj IV SCH (08:00)
[2022-08-22] MEDS: normal saline 1000ml 1,000 ML IV SCH ×2 (08:04→17:17)
[2022-08-22] MEDS: CefTRIAXone/D5W-Rocephin 1gm 50 ML IV SCH (09:25)
[2022-08-22 10:53] LABS: ALBUMIN 2.2 G/DL (3.4-5.0); ANION GAP 10 (8-16); BLOOD UREA NITROGEN 25 MG/DL (7-18); BUN/CREATININE RATIO 65.8 (5.4-32.0); CHLORIDE 96 MMOL/L (99-107); CREATININE 0.38 MG/DL (0.60-1.10); GLUCOSE 145 MG/DL (70-104); SODIUM 140 MMOL/L (135-145); TOTAL CARBON DIOXIDE 34.5 MMOL/L (24-32); eGFR > 90 ML/MIN
[2022-08-22 10:55] LABS: POTASSIUM 2.7 MMOL/L (3.5-5.1)
[2022-08-22] MEDS: potassium Cl 20mEq/100mL bag 100 ML IV PRN ×4 (11:25→14:36)
[2022-08-22 17:33] LABS: ALBUMIN 2.4 G/DL (3.4-5.0); ANION GAP 5 (8-16); BLOOD UREA NITROGEN 22 MG/DL (7-18); BUN/CREATININE RATIO 81.5 (5.4-32.0); CALCIUM 9.1 MG/DL (8.5-10.1); CHLORIDE 98 MMOL/L (99-107); CREATININE 0.27 MG/DL (0.60-1.10); GLUCOSE 96 MG/DL (70-104); SODIUM 136 MMOL/L (135-145); TOTAL CARBON DIOXIDE 32.6 MMOL/L (24-32); eGFR > 90 ML/MIN
--- NOTE | 2022-08-22 17:44 | NUR ---
Patient asked for a tung nut grower to come and talk to him about what end of life looks like and was asking for prayer. Jeanna, [facility] Veneer Stacker bedside and spent several minutes with the patient just talking and praying with him. Jeanna stated that we can call anytime and he will come back to be with the patient. Mother bedside now.
[2022-08-22] MEDS: polyethylene glycol 3350 17gm powd pack PEG SCH (20:39)
[2022-08-22] MEDS: insulin glargine (Lantus) pen - multi-dose SQ SCH (21:00)
[2022-08-22] MEDS: gabapentin 100mg capsule PEG SCH (21:15)
[2022-08-23] VITALS (33 sets, daily range): BP systolic 89–120; BP diastolic 45–69
[2022-08-23] MEDS: erythromycin ethylsuccinate 200mg/5ml 200ml bottle PEG SCH ×2 (00:17→08:13)
[2022-08-23] MEDS: morphine 2 MG/ML inj. syringe IV PRN ×7 (01:46→19:40)
[2022-08-23] MEDS: POTASSIUM BICARB 20meq eff tab 20 MEQ TABLET.EFF PEG SCH ×4 (02:00→19:40)
--- NOTE | 2022-08-23 06:00 | NUR ---
Patient in room CICU 2008. I have received report from Ketan DAVID and had the opportunity to ask questions and assume patient care.
[2022-08-23 06:53] LABS: POTASSIUM 2.7 MMOL/L (3.5-5.1)
[2022-08-23] MEDS: normal saline 1000ml 1,000 ML IV SCH ×2 (06:57→08:14)
[2022-08-23 07:05] LABS: BASOPHILS % (AUTO) 0.5 % (0-1); EOSINOPHILS # (AUTO) 0.4 X10'3 (0-0.9); EOSINOPHILS % (AUTO) 4.3 % (0-6); HEMATOCRIT 24.7 % (42.0-52.0); HEMOGLOBIN 7.4 g/dl (14.0-17.9); LYMPHOCYTES % (AUTO) 12.4 % (21-51); MEAN CORPUSCULAR HEMOGLOBIN 23.6 PG (27.0-31.0); MEAN CORPUSCULAR VOLUME 78.7 FL (78-98); MEAN PLATELET VOLUME 7.6 FL (7.4-10.4); MONOCYTES # (AUTO) 0.6 X10'3 (0-0.9); MONOCYTES % (AUTO) 7.4 % (2-12); NEUTROPHILS # (AUTO) 6.4 X10'3 (1.8-7.7); NEUTROPHILS % (AUTO) 75.4 % (42-75); PLATELET COUNT 342 X10'3 (140-440); RED BLOOD COUNT 3.13 X10'6 (4.70-6.10); RED CELL DISTRIBUTION WIDTH 19.4 % (11.5-14.5); WHITE BLOOD COUNT 8.4 X10'3 (4.5-11.0)
[2022-08-23 07:11] LABS: ALANINE AMINOTRANSFERASE 45 U/L (12-78); ALBUMIN 2.3 G/DL (3.4-5.0); ALBUMIN/GLOBULIN RATIO 0.4 (1.1-1.5); ALKALINE PHOSPHATASE 80 IU/L (46-116); ANION GAP 11 (8-16); ASPARTATE AMINO TRANSFERASE 29 U/L (10-37); BILIRUBIN,TOTAL 0.5 MG/DL (0.1-1.0); BLOOD UREA NITROGEN 19 MG/DL (7-18); BUN/CREATININE RATIO 79.2 (5.4-32.0); CALCIUM 9.3 MG/DL (8.5-10.1); CHLORIDE 98 MMOL/L (99-107); CREATININE 0.24 MG/DL (0.60-1.10); GLUCOSE 96 MG/DL (70-104); SODIUM 136 MMOL/L (135-145); TOTAL CARBON DIOXIDE 26.8 MMOL/L (24-32); TOTAL PROTEIN 7.6 G/DL (6.4-8.2); eGFR > 90 ML/MIN
[2022-08-23] MEDS: ipratropium/albuterol 3ml nebule NEB SCH ×5 (07:18→22:48)
[2022-08-23 07:29] LABS: ABG BASE EXCESS 12.6 mmol/L (-2.0-2.0); ABG HCO3 35.2 mmol/L (22.0-26.0); ABG OXYGEN SATURATION 97.6 % (94-97); ABG PCO2 (T) 37.2 mmHg (35.0-48.0); ABG PO2 (T) 92.4 mmHg (75.0-100.0); ALLEN'S TEST POSITIVE; FCOHb 0.9 % (0.0-3.9); FMetHb 0.3 % (0.0-1.5); FO2Hb 96.4 % (94-97); PEEP 5 cm H2O; RESPIRATORY RATE 16 b/min; TIDAL VOLUME 350 mL
[2022-08-23] MEDS: ESCITALOPRAM OXALATE 5 MG TABLET PEG SCH (08:12)
[2022-08-23] MEDS: busPIRone 5mg tablet PEG SCH ×2 (08:12→19:39)
[2022-08-23] MEDS: docusate sodium 100mg/10ml UD cup PEG SCH ×2 (08:13→19:40)
[2022-08-23] MEDS: levoFLOXACIN-Levaquin 750MG/D5 150 ML IV SCH (08:14)
[2022-08-23] MEDS: CefTRIAXone/D5W-Rocephin 1gm 50 ML IV SCH (08:14)
[2022-08-23] MEDS: POTASSIUM BICARB 20meq eff tab 20 MEQ TABLET.EFF PEG PRN (08:19)
[2022-08-23] MEDS ORDERED: mag hydrox/Alum hydrox/simeth 30ml oral suspension PEG PRN (11:05)
[2022-08-23] MEDS: pantoprazole 40MG/NS 100ML BAG 100 ML IV SCH (11:39)
[2022-08-23] MEDS: milrinone (Primacor) 20mg/D5W 100 ML IV PRN ×2 (11:40→18:10)
[2022-08-23] MEDS: diatr meglu/diatrizoate 30ml oral sol.-(3 dose) bottle PO SCH ×3 (11:41→17:23)
[2022-08-23] MEDS: NORMAL SALINE IV SCH ×3 (12:16→23:36)
[2022-08-23] MEDS: DEXMEDETOMIDINE IV SCH ×3 (12:16→23:36)
[2022-08-23] MEDS: potassium Cl 20mEq/100mL bag 100 ML IV PRN ×4 (12:16→17:33)
--- NOTE | 2022-08-23 14:00 | NUR ---
Dr. Paul at bedside with US tech to identify pleural fluid. Dr. Paul performed bedside thoracentesis on right side. 1900ml of pleural fluid removed. Sample sent to lab.
[2022-08-23 15:58] LABS: AMYLASE,BODY FLUID 23 U/L; GLUCOSE,BODY FLUID 121 MG/DL; TOTAL PROTEIN,BODY FLUID 4.2 G/DL
[2022-08-23 16:04] LABS: LDH,BODY FLUID 158 U/L
[2022-08-23 17:08] LABS: EOSINOPHILS,BODY FLUID 1 %; LYMPHOCYTES,BODY FLUID 75 %; MONOCYTES,BODY FLUID 17 %; NEUTROPHILS,BODY FLUID 7 %
[2022-08-23 17:09] LABS: BF RBC COUNT 1040 /CU MM; BF WBC COUNT 295 /CU MM (0-1000); BFAPPEAR HAZY; BFCOLOR YELLOW; BFVOLUME 76 ML
--- NOTE | 2022-08-23 18:26 | NUR ---
Problems reprioritized. Patient report given, questions answered & plan of care reviewed with Madeline DAVID.
[2022-08-23] MEDS: insulin glargine (Lantus) pen - multi-dose SQ SCH (18:41)
[2022-08-23] MEDS: gabapentin 100mg capsule PEG SCH (19:39)
[2022-08-23] MEDS: polyethylene glycol 3350 17gm powd pack PEG SCH (19:40)
[2022-08-24] VITALS (34 sets, daily range): BP systolic 86–112; BP diastolic 46–67
[2022-08-24] MEDS: milrinone (Primacor) 20mg/D5W 100 ML IV PRN ×4 (01:00→22:14)
[2022-08-24] MEDS: POTASSIUM BICARB 20meq eff tab 20 MEQ TABLET.EFF PEG SCH ×4 (02:05→19:28)
[2022-08-24 06:24] LABS: MAGNESIUM 1.9 MG/DL (1.5-2.4)
--- NOTE | 2022-08-24 06:35 | NUR ---
Patient in room CICU 2007. I have received report from Madeline DAVID and had the opportunity to ask questions and assume patient care.
[2022-08-24] MEDS: DEXMEDETOMIDINE IV SCH (06:38)
[2022-08-24] MEDS: NORMAL SALINE IV SCH (06:38)
[2022-08-24 06:49] LABS: BASOPHILS % (AUTO) 0.3 % (0-1); EOSINOPHILS # (AUTO) 0.2 X10'3 (0-0.9); EOSINOPHILS % (AUTO) 3.5 % (0-6); HEMATOCRIT 23.6 % (42.0-52.0); HEMOGLOBIN 7.3 g/dl (14.0-17.9); LYMPHOCYTES # (AUTO) 1.1 X10'3 (1.1-4.8); LYMPHOCYTES % (AUTO) 17.2 % (21-51); MEAN CORPUSCULAR HEMOGLOBIN 23.8 PG (27.0-31.0); MEAN CORPUSCULAR HGB CONC 30.8 g/dL (33.0-36.5); MEAN CORPUSCULAR VOLUME 77.3 FL (78-98); MEAN PLATELET VOLUME 7.5 FL (7.4-10.4); MONOCYTES # (AUTO) 0.6 X10'3 (0-0.9); MONOCYTES % (AUTO) 8.5 % (2-12); NEUTROPHILS # (AUTO) 4.7 X10'3 (1.8-7.7); NEUTROPHILS % (AUTO) 70.5 % (42-75); PLATELET COUNT 353 X10'3 (140-440); RED BLOOD COUNT 3.06 X10'6 (4.70-6.10); RED CELL DISTRIBUTION WIDTH 19.3 % (11.5-14.5); WHITE BLOOD COUNT 6.6 X10'3 (4.5-11.0)
[2022-08-24] MEDS: ipratropium/albuterol 3ml nebule NEB SCH ×4 (07:10→19:03)
[2022-08-24 07:17] LABS: ALANINE AMINOTRANSFERASE 31 U/L (12-78); ALBUMIN 2.1 G/DL (3.4-5.0); ALBUMIN/GLOBULIN RATIO 0.4 (1.1-1.5); ALKALINE PHOSPHATASE 76 IU/L (46-116); ANION GAP 11 (8-16); ASPARTATE AMINO TRANSFERASE 24 U/L (10-37); BILIRUBIN,TOTAL 0.4 MG/DL (0.1-1.0); BLOOD UREA NITROGEN 15 MG/DL (7-18); CHLORIDE 99 MMOL/L (99-107); GLUCOSE 88 MG/DL (70-104); POTASSIUM 3.6 MMOL/L (3.5-5.1); SODIUM 137 MMOL/L (135-145); TOTAL CARBON DIOXIDE 26.9 MMOL/L (24-32); TOTAL PROTEIN 7.1 G/DL (6.4-8.2); eGFR > 90 ML/MIN
[2022-08-24] MEDS: docusate sodium 100mg/10ml UD cup PEG SCH ×2 (07:28→18:55)
[2022-08-24] MEDS: ESCITALOPRAM OXALATE 5 MG TABLET PEG SCH (07:36)
[2022-08-24] MEDS: CefTRIAXone/D5W-Rocephin 1gm 50 ML IV SCH (07:36)
[2022-08-24] MEDS: busPIRone 5mg tablet PEG SCH ×2 (07:36→19:28)
[2022-08-24] MEDS: pantoprazole 40MG/NS 100ML BAG 100 ML IV SCH (07:36)
[2022-08-24] MEDS: levoFLOXACIN-Levaquin 750MG/D5 150 ML IV SCH (07:37)
[2022-08-24] MEDS: morphine 2 MG/ML inj. syringe IV PRN ×4 (09:07→22:13)
--- NOTE | 2022-08-24 10:41 | NUR ---
Tyrese Consult: Pt remains intubated currently tolerating TF at goal GRV WNL per EMR. TF held this AM for L thoracentesis to return to goal after per RN. Pt now having loose stools this AM w/ stools yesterday per RN; first BM since 08/17 likely. Tyrese 12 w/ buttock DTI per RN this AM though pending WOC note. Will continue to follow. Recommendations: 1) Continuous Vital AF via PEG with 70 mL/hr goal rate to provide 1680 mL volume/day, 2016 kcal, 126 g protein, and 1362 mL water 2) Additional water flush per physician given CHF and diuresis; monitor serum Na 3) Prealbumin q Tuesday/;Daily scaled weights 4) Routine bowel regimen Addendum: 08/24/22 at [address] Amended: Links added.
[2022-08-24 12:37] LABS: BF RBC COUNT 830 /CU MM; BF WBC COUNT 360 /CU MM (0-1000); BFAPPEAR HAZY; BFCOLOR YELLOW; BFVOLUME 58 ML; LYMPHOCYTES,BODY FLUID 82 %; MONOCYTES,BODY FLUID 12 %; NEUTROPHILS,BODY FLUID 6 %
--- NOTE | 2022-08-24 13:43 | NUR ---
PRESSURE ULCER EDUCATION: DEFINITION: A pressure ulcer is an area of skin that breaks down when you stay in one position too long. The constant pressure against the skin reduces the blood flow to that area and the affected tissue dies. CAUSES: "Being bedridden or in a wheelchair "Fragile skin "Having a chronic condition, such as diabetes or vascular disease "Inability to move certain parts of your body without assistance "Older age "Incontinence of urine or stool SYMPTOMS: "A reddened area that DOES NOT turn white when pressed on - this can be the beginning of a pressure ulcer "A blister, deep sore or a crater - these can be advanced pressure ulcers FIRST AID: "Relieve the pressure on this area "Keep the area clean and dry "Call your primary doctor if you see any of the above symptoms "DO NOT massage the area "DO NOT use a donut shaped or ring shaped pillow- these actually interfere with the blood flow and cause complications PREVENTION: "Check for pressure ulcers everyday "Change position at least every two hours to relieve pressure "Use items that help relieve pressure- pillows, sheepskin, foam padding, and powders. "Keep skin clean and dry "Eat healthy well balanced meals "Exercise daily IF YOU SEE ANY OF THESE SYMPTOMS WHILE IN THE HOSPITAL - TELL YOUR NURSE IMMEDIATELY. IF YOU SEE ANY OF THESE SYMPTOMS WHILE AT HOME OR HAVE ANY QUESTIONS OR CONCERNS ABOUT PRESSURE ULCERS - CALL YOUR PRIMARY DOCTOR IMMEDIATELY. Addendum: 08/24/22 at 1344 by Carli Ramirez RN Amended: Links added.
[2022-08-24 14:01] LABS: AMYLASE,BODY FLUID 16 U/L; GLUCOSE,BODY FLUID 100 MG/DL; LDH,BODY FLUID 138 U/L; TOTAL PROTEIN,BODY FLUID 3.8 G/DL
--- NOTE | 2022-08-24 16:23 | NUR ---
Informed Dr. Paul of high residual of 450ml. MD stated to continue tube feed unless residual above 500ml or vomiting. Patient not complaining of nausea at this time.
[2022-08-24] MEDS ORDERED: dexmedetomidin/NS 400mcg/100ml 100 ML IV SCH (17:05)
[2022-08-24] MEDS ORDERED: amiodarone 150mg/dext, iso-os 100 ML IV ONE (17:10)
[2022-08-24] MEDS: dexmedetomidine inj. 400 MCG in normal saline 100ml IV soln 96 ML IV SCH (17:22)
[2022-08-24] MEDS: amiodarone inj. 450 MG in dextrose 5%-water 241 ML IV SCH (17:23)
--- NOTE | 2022-08-24 17:37 | NUR ---
Informed Dr. Paul regarding 22beat run of Vtach. ordered amiodorone drip with loading bolus and to resume maintenance dose at 1mg. Patient asymptomatic at time of rhythm change.
--- NOTE | 2022-08-24 18:13 | NUR ---
Patient in room [facility] 2007. I have received report from Madeline DAVID and had the opportunity to ask questions and assume patient care. Addendum: 08/24/22 at 1821 by Toyin Jackson RN Disregard above note. Problems reprioritized. Patient report given, questions answered & plan of care reviewed with Madeline DAVID.
[2022-08-24] MEDS: polyethylene glycol 3350 17gm powd pack PEG SCH (18:56)
[2022-08-24] MEDS: gabapentin 100mg capsule PEG SCH (19:28)
[2022-08-24] MEDS: morphine 4 MG/ML inj SYRINge IV PRN (19:28)
[2022-08-24] MEDS: insulin glargine (Lantus) pen - multi-dose SQ SCH (20:42)
--- NOTE | 2022-08-24 22:14 | NUR ---
pt c/o abdominal fullness and pain. GRV 280ml. Patient requests to have tube feeding turned off for now.
[2022-08-25] VITALS (33 sets, daily range): BP systolic 86–113; BP diastolic 45–67
[2022-08-25] MEDS: amiodarone inj. 450 MG in dextrose 5%-water 241 ML IV SCH ×3 (00:45→08:02)
[2022-08-25] MEDS: POTASSIUM BICARB 20meq eff tab 20 MEQ TABLET.EFF PEG SCH ×4 (01:21→20:40)
[2022-08-25] MEDS: morphine 2 MG/ML inj. syringe IV PRN (01:22)
[2022-08-25] MEDS: ondansetron/PF 4mg/2ml inj IV PRN ×2 (02:26→09:11)
[2022-08-25] MEDS: metoclopramide 5 mg/ml inj IV PRN ×3 (02:26→20:39)
[2022-08-25] MEDS: dexmedetomidine inj. 400 MCG in normal saline 100ml IV soln 96 ML IV SCH ×4 (04:00→20:32)
[2022-08-25] MEDS: morphine 4 MG/ML inj SYRINge IV PRN ×6 (05:10→21:45)
[2022-08-25] MEDS: milrinone (Primacor) 20mg/D5W 100 ML IV PRN ×3 (06:04→23:10)
[2022-08-25] MEDS: ipratropium/albuterol 3ml nebule NEB SCH ×4 (07:34→19:34)
[2022-08-25] MEDS: pantoprazole 40MG/NS 100ML BAG 100 ML IV SCH (07:58)
[2022-08-25] MEDS: busPIRone 5mg tablet PEG SCH ×2 (07:59→20:39)
[2022-08-25] MEDS: docusate sodium 100mg/10ml UD cup PEG SCH ×3 (07:59→20:00)
[2022-08-25] MEDS: ESCITALOPRAM OXALATE 5 MG TABLET PEG SCH (07:59)
[2022-08-25] MEDS: levoFLOXACIN-Levaquin 750MG/D5 150 ML IV SCH (08:02)
[2022-08-25] MEDS: CefTRIAXone/D5W-Rocephin 1gm 50 ML IV SCH (08:02)
[2022-08-25] MEDS ORDERED: amiodarone inj. 450 MG in dextrose 5%-water 241 ML IV SCH (09:15)
[2022-08-25] MEDS ORDERED: proCHLORperazine 10 MG/2 ml inj IV PRN (10:20)
[2022-08-25] MEDS ORDERED: proCHLORperazine 10mg tablet PEG PRN (10:25)
[2022-08-25] MEDS ORDERED: ondansetron/PF 4mg/2ml inj IV PRN (10:26)
[2022-08-25] MEDS: amiodarone 200mg tablet PO SCH ×2 (10:40→20:39)
[2022-08-25 11:21] LABS: BASOPHILS % (AUTO) 0.3 % (0-1); EOSINOPHILS # (AUTO) 0.2 X10'3 (0-0.9); EOSINOPHILS % (AUTO) 2.8 % (0-6); HEMATOCRIT 23.1 % (42.0-52.0); LYMPHOCYTES # (AUTO) 0.8 X10'3 (1.1-4.8); LYMPHOCYTES % (AUTO) 12.4 % (21-51); MEAN CORPUSCULAR HEMOGLOBIN 23.5 PG (27.0-31.0); MEAN CORPUSCULAR HGB CONC 30.3 g/dL (33.0-36.5); MEAN CORPUSCULAR VOLUME 77.4 FL (78-98); MEAN PLATELET VOLUME 7.1 FL (7.4-10.4); MONOCYTES # (AUTO) 0.8 X10'3 (0-0.9); MONOCYTES % (AUTO) 11.6 % (2-12); NEUTROPHILS # (AUTO) 4.7 X10'3 (1.8-7.7); NEUTROPHILS % (AUTO) 72.9 % (42-75); PLATELET COUNT 360 X10'3 (140-440); RED BLOOD COUNT 2.98 X10'6 (4.70-6.10); RED CELL DISTRIBUTION WIDTH 19.3 % (11.5-14.5); WHITE BLOOD COUNT 6.5 X10'3 (4.5-11.0)
[2022-08-25 11:44] LABS: ALANINE AMINOTRANSFERASE 22 U/L (12-78); ALBUMIN 1.8 G/DL (3.4-5.0); ALBUMIN/GLOBULIN RATIO 0.4 (1.1-1.5); ALKALINE PHOSPHATASE 73 IU/L (46-116); ANION GAP 9 (8-16); ASPARTATE AMINO TRANSFERASE 14 U/L (10-37); BILIRUBIN,TOTAL 0.3 MG/DL (0.1-1.0); BLOOD UREA NITROGEN 11 MG/DL (7-18); BUN/CREATININE RATIO 47.8 (5.4-32.0); CALCIUM 8.8 MG/DL (8.5-10.1); CHLORIDE 98 MMOL/L (99-107); CREATININE 0.23 MG/DL (0.60-1.10); GLUCOSE 123 MG/DL (70-104); SODIUM 132 MMOL/L (135-145); TOTAL CARBON DIOXIDE 25.5 MMOL/L (24-32); TOTAL PROTEIN 6.6 G/DL (6.4-8.2); eGFR > 90 ML/MIN
[2022-08-25 11:47] LABS: POTASSIUM 2.9 MMOL/L (3.5-5.1)
[2022-08-25] MEDS: potassium Cl 20mEq/100mL bag 100 ML IV PRN ×4 (11:52→19:28)
--- NOTE | 2022-08-25 17:31 | NUR ---
Dr. Paul called and notified about high residuals after tube feed being off since 0700. Also notified of low urine output. No new orders.
--- NOTE | 2022-08-25 18:30 | NUR ---
Patient in room CICU 2007. I have received report from FRANKIE Plasencia and had the opportunity to ask questions and assume patient care.
[2022-08-25] MEDS ORDERED: amiodarone 200mg tablet PO SCH (20:00)
[2022-08-25] MEDS: insulin glargine (Lantus) pen - multi-dose SQ SCH (20:40)
[2022-08-25] MEDS: polyethylene glycol 3350 17gm powd pack PEG SCH (20:40)
[2022-08-25] MEDS: gabapentin 100mg capsule PEG SCH (20:40)
--- NOTE | 2022-08-25 21:52 | NUR ---
unable to obtain daily weight D/T bed scale not working Addendum: 08/25/22 at 2152 by Velma Rivas RN Amended: Links added.
[2022-08-26] VITALS (22 sets, daily range): BP systolic 93–112; BP diastolic 48–60
[2022-08-26] MEDS: morphine 4 MG/ML inj SYRINge IV PRN ×5 (01:17→13:31)
[2022-08-26] MEDS: POTASSIUM BICARB 20meq eff tab 20 MEQ TABLET.EFF PEG SCH ×3 (01:17→13:31)
--- NOTE | 2022-08-26 01:43 | NUR ---
pt refusing tube feed and residuals back D/T stomach hurting. 0000 residuals 420cc's.
[2022-08-26] MEDS: dexmedetomidine inj. 400 MCG in normal saline 100ml IV soln 96 ML IV SCH ×2 (02:36→07:34)
[2022-08-26 02:42] LABS: BASOPHILS % (AUTO) 0.4 % (0-1); EOSINOPHILS # (AUTO) 0.1 X10'3 (0-0.9); EOSINOPHILS % (AUTO) 2.1 % (0-6); HEMATOCRIT 23.1 % (42.0-52.0); LYMPHOCYTES # (AUTO) 0.7 X10'3 (1.1-4.8); MEAN CORPUSCULAR HEMOGLOBIN 23.2 PG (27.0-31.0); MEAN CORPUSCULAR HGB CONC 30.1 g/dL (33.0-36.5); MEAN CORPUSCULAR VOLUME 76.9 FL (78-98); MEAN PLATELET VOLUME 7.7 FL (7.4-10.4); MONOCYTES # (AUTO) 0.5 X10'3 (0-0.9); MONOCYTES % (AUTO) 9.7 % (2-12); NEUTROPHILS # (AUTO) 4.2 X10'3 (1.8-7.7); NEUTROPHILS % (AUTO) 74.8 % (42-75); PLATELET COUNT 337 X10'3 (140-440); RED CELL DISTRIBUTION WIDTH 19.2 % (11.5-14.5); WHITE BLOOD COUNT 5.6 X10'3 (4.5-11.0)
[2022-08-26 02:46] LABS: ALANINE AMINOTRANSFERASE 19 U/L (12-78); ALBUMIN 1.8 G/DL (3.4-5.0); ALBUMIN/GLOBULIN RATIO 0.4 (1.1-1.5); ALKALINE PHOSPHATASE 72 IU/L (46-116); ANION GAP 10 (8-16); ASPARTATE AMINO TRANSFERASE 12 U/L (10-37); BILIRUBIN,TOTAL 0.3 MG/DL (0.1-1.0); BLOOD UREA NITROGEN 9 MG/DL (7-18); CALCIUM 8.7 MG/DL (8.5-10.1); CHLORIDE 99 MMOL/L (99-107); GLUCOSE 162 MG/DL (70-104); POTASSIUM 3.5 MMOL/L (3.5-5.1); SODIUM 134 MMOL/L (135-145); TOTAL CARBON DIOXIDE 25.1 MMOL/L (24-32); TOTAL PROTEIN 6.5 G/DL (6.4-8.2)
[2022-08-26 02:47] LABS: HEMOGLOBIN 6.9 g/dl (14.0-17.9)
[2022-08-26 02:52] LABS: CREATININE 0.15 MG/DL (0.60-1.10); eGFR > 90 ML/MIN
[2022-08-26 03:09] LABS: ANISOCYTOSIS 2+; MICROCYTOSIS 1+; PLATELET ESTIMATE NORMAL; TOTAL CELLS COUNTED 100
[2022-08-26 03:10] LABS: STOMATOCYTES 1+
[2022-08-26 03:11] LABS: POLYCHROMASIA FEW
--- NOTE | 2022-08-26 06:19 | NUR ---
Problems reprioritized. Patient report given, questions answered & plan of care reviewed with FRANKIE Plasencia.
[2022-08-26] MEDS: milrinone (Primacor) 20mg/D5W 100 ML IV PRN (07:33)
[2022-08-26] MEDS: pantoprazole 40MG/NS 100ML BAG 100 ML IV SCH (07:34)
[2022-08-26] MEDS: ESCITALOPRAM OXALATE 5 MG TABLET PEG SCH (07:38)
[2022-08-26] MEDS: busPIRone 5mg tablet PEG SCH (07:38)
[2022-08-26] MEDS: amiodarone 200mg tablet PO SCH (07:38)
[2022-08-26] MEDS: levoFLOXACIN-Levaquin 750MG/D5 150 ML IV SCH (07:41)
[2022-08-26] MEDS: docusate sodium 100mg/10ml UD cup PEG SCH (07:41)
[2022-08-26] MEDS: CefTRIAXone/D5W-Rocephin 1gm 50 ML IV SCH (07:41)
[2022-08-26] MEDS: metoclopramide 5 mg/ml inj IV PRN (07:41)
[2022-08-26] MEDS: ipratropium/albuterol 3ml nebule NEB SCH ×2 (08:29→10:45)
[2022-08-26 11:48] LABS: % IRON SATURATION 6 % (11-46); IRON 17 UG/DL (53-167); TOTAL IRON BINDING CAPACITY 279 UG/DL (259-388)
--- NOTE | 2022-08-26 12:49 | NUR ---
pt refused residual be returned to him. TF started at 30 ml/hr. Patient still refusing tuns.
[2022-08-26] MEDS ORDERED: vancomycin/NS 1 GM ADD-VANTAGE 250 ML IV SCH (13:00)
[2022-08-26] MEDS: midazolam 1 mg/ML 2ml injection IV PRN (14:57)
--- NOTE | 2022-08-26 15:00 | NUR ---
report given to anne-marie from [facility] and EMS. Patient being transported to [facility] on milrinone drip and vented. Patient given a push of versed before departure.
[2022-08-26] MEDS ORDERED: pantoprazole 40MG/NS 100ML BAG 100 ML IV SCH (20:00)
== END 2022-08-26 15:17 | DRG 720 ==
LOC: ER 16:18 → ED HOLD 20:58 → EDBEDREQ 22:20 → CICU 2S 23:51
PROVIDERS: ADMIT Internal Medicine Critical Care Medicine; ATTEND Internal Medicine Critical Care Medicine
PROC: 5A1955Z Respiratory Ventilation, Greater than 96 Consecutive Hours (ICD-10-PCS; principal; 2022-08-16)
PROC: 0W993ZZ Drainage of Right Pleural Cavity, Percutaneous Approach (ICD-10-PCS; 2022-08-23)
PROC: 0W9B3ZX Drainage of Left Pleural Cavity, Percutaneous Approach, Diagnostic (ICD-10-PCS; 2022-08-24)
PROC: 05HY33Z Insertion of Infusion Device into Upper Vein, Percutaneous Approach (ICD-10-PCS; 2022-08-25)
DX: A41.9 Sepsis, unspecified organism (principal); J96.20 Acute and chronic respiratory failure, unspecified whether with hypoxia or hypercapnia; J91.8 Pleural effusion in other conditions classified elsewhere; I50.23 Acute on chronic systolic (congestive) heart failure; J15.6 Pneumonia due to other Gram-negative bacteria; R34 Anuria and oliguria; E87.3 Alkalosis; R18.8 Other ascites; I42.9 Cardiomyopathy, unspecified; E87.6 Hypokalemia; R74.01 Elevation of levels of liver transaminase levels; D50.9 Iron deficiency anemia, unspecified; B95.62 Methicillin resistant Staphylococcus aureus infection as the cause of diseases classified elsewhere; Z16.11 Resistance to penicillins; Z99.11 Dependence on respirator [ventilator] status; G71.00 Muscular dystrophy, unspecified; E16.2 Hypoglycemia, unspecified; M54.9 Dorsalgia, unspecified; K80.20 Calculus of gallbladder without cholecystitis without obstruction; Z93.1 Gastrostomy status; Z95.810 Presence of automatic (implantable) cardiac defibrillator; Z93.0 Tracheostomy status; T50.2X5A Adverse effect of carbonic-anhydrase inhibitors, benzothiadiazides and other diuretics, initial encounter; Y92.230 Patient room in hospital as the place of occurrence of the external cause; Z79.899 Other long term (current) drug therapy
CPT/HCPCS: 32555; 36415; 36569; 36600; 71045; 71250; 74176; 76942; 80048; 80053; 80069; 80202; 82150; 82803; 82945; 82948; 83036; 83540; 83550; 83605; 83615; 83690; 83735; 83880; 84132; 84134; 84145; 84157; 85007; 85008; 85018; 85025; 85610; 85730; 87040; 87070; 87077; 87081; 87186; 89051; 93005; 94002; 94003; 94640; 94760; 94799; 97161; 97530; 99291; A4623; A4628; A6212; A6213; A6258; A6449; A7015; A7521; C1751; C9113; G0378; J0282; J0696; J0780; J1170; J1815; J1940; J1956; J2250; J2260; J2270; J2405; J2543; J2765; J3370; J3475; J3480; J3490; J7030; J7040; J7050; J7060; Q9963